=== PATIENT | female | born 1930 | race African-American/Black ===

== ENCOUNTER 2016-11-20 10:55 | Inpatient (IN) | payer OTHER ==
[~2016-11-20] VITALS: Ht 134.6 cm; Wt 59.9 kg
--- NOTE | ~2016-11-20 | 2DMMODE ---
[facility] [address] [place] [address] 2 D/M-MODE ECHOCARDIOGRAM Name: PAT ACUÑA Room #: 303-P [facility] IN ..#: [id number] Admission: 11/20/16 Attend Phys: Renny Mobley, Discharge: Date of : 28 Date of Service: 11/21/16 1411 Report #: [id number] THIS REPORT FOR: //name// APPROVED REPORT Study performed: 11/21/2016 13:12:10 EXAM: Comprehensive 2D, Doppler, and color-flow Echocardiogram Patient Location: Echo lab Room #: 303 Status: routine BSA: 1.55 BP: 109/51 mmHg Other Information Study Quality: Adequate, Technically Difficult Technically limited study due to uncooperative patient. Indications Congestive Heart Failure COPD Dyspnea Syncope Hypertension/HDD 2D Dimensions RVDd: 28.03 mm LVEF(%): 55.02 (>50%) IVSd: 12.46 (7-11mm) LVOT Diam: 18.04 (18-24mm) LVDd: 38.16 mm PWd: 11.09 (7-11mm) Ascending Ao: 29.37 (22-36mm) LVDs: 27.45 (25-40mm) Aortic Root: 27.45 mm IVC: 10.00 mm Nicole's LVEF: 55.02 % Volumes Left Atrial Volume (Systole) Single Plane 4CH: 62.50 mL Single Plane 2CH: 52.11 mL LA ESV Index: 38.00 mL/m2 Aortic Valve AoV Peak Shamar.: 1.52 m/s AO Peak Gr.: 9.25 mmHg LVOT Max P.73 mmHg LVOT Max V: 1.09 m/s [facility] [place] [address] 2 D/M-MODE ECHOCARDIOGRAM Name: PAT ACUÑA Room #: 303-P [facility]#: [id number] Admission: 11/20/16 Attend Phys: Renny Mobley, Discharge: Date of : 28 Date of Service: 11/21/16 1411 Report #: [id number] KAREN Vmax: 1.83 cm2 Mitral Valve E/A Ratio: 0.7 MV Decel. Time: 223.37 ms MV E Max Shamar.: 0.81 m/s MV A Shamar.: 1.12 m/s MV PHT: 64.78 ms IVRT: 93.43 ms Pulmonary Valve PV Peak Shamar.: 1.09 m/s PV Peak Gr.: 4.75 mmHg Pulmonary Vein P Vein S: 0.67 m/s P Vein A: 0.24 m/s P Vein D: 0.38 m/s P Vein A Dur.: 124.6 msec P Vein S/D Ratio: 1.76 Tricuspid Valve RAP Estimate: 5.00 mmHg Left Ventricle The left ventricle is normal size. There is normal left ventricular wall thickness. The left ventricular systolic function is normal. The left ventricular ejection fraction is within the normal range. LVEF is 65%. Mild diastolic dysfunction is present (impaired relaxation pattern). Right Ventricle The right ventricle is normal size. The right ventricular systolic function is normal. Atria Left atrium is dilated. The right atrium size is normal. Aortic Valve The aortic valve is normal in structure. Mild aortic regurgitation. There is no aortic valvular stenosis. Mitral Valve The mitral valve is normal in structure. Mild mitral regurgitation. No evidence of mitral valve stenosis. Tricuspid Valve The tricuspid valve is normal in structure. Trace to mild tricuspid regurgitation. Unable to assess PA pressure. [address] [address] 2 D/M-MODE ECHOCARDIOGRAM Name: ACUÑAPAT Room #: 303-P [facility]#: [id number] Admission: 11/20/16 Attend Phys: Renny Mobley, Discharge: Date of : 28 Date of Service: 11/21/16 1411 Report #: [id number] Pulmonic Valve Pulmonic valve is not well visualized. There is no pulmonic valvular regurgitation. Great Vessels The aortic root is normal in size. Aortic arch is not well visualized. IVC is normal in size and collapses >50% with inspiration. <Conclusion> The left ventricle is normal size. The left ventricular systolic function is normal. The right ventricle is normal size. Left atrium is dilated. Mild aortic regurgitation. Mild mitral regurgitation. Trace to mild tricuspid regurgitation. Unable to assess PA pressure. <ELECTRONICALLY SIGNED> By: Lester Dave MD 11/21/16 141 10 10 Lester Dave MD /INF
--- NOTE | ~2016-11-20 | EKG ---
[address] [address] ELECTROCARDIOGRAM REPORT Name: PAT ACUÑA Room #: 303- ADM IN M.R.#: [id number] Admission: 11/20/16 Attend Phys: Renny Mobley MD Discharge: Date of : 28 Report #: [id number] THIS REPORT FOR: //name// [facility] Test Date: 2016-11-21 Test Time: 08:38:30 Pat Name: PAT ACUÑA Department: Room: 303 Gender: F Supervisor Coin Machine: julianna : 1930 Requested By: Renny Mobley Order Number: [id number] MD: Dale Brown Measurements Intervals [place] Rate: 53 P: 41 WI: 158 QRS: 37 QRSD: 80 T: -51 QT: 424 QTc: 399 Interpretive Statements Sinus rhythm Nonspecific ST and T wave abnormality Compared to ECG 11/20/2016 11:32:17 No significant changes Electronically Signed On 11-21-2016 16:30:58 CDT by Dale Brown [email or web address] <ELECTRONICALLY SIGNED> By: Dale Brown MD, [facility] 11/21/16 1630 0838 0838 Dale rBown MD, [facility] /EPI
--- NOTE | ~2016-11-20 | EKG ---
[address] [address] ELECTROCARDIOGRAM REPORT Name: DOMENICOPAT Room #: 303-P ADM IN M.R.#: [id number] Admission: 11/20/16 Attend Phys: Renny Mobley MD Discharge: Date of : 28 Report #: [id number] THIS REPORT FOR: //name// [facility] ED Test Date: 2016-11-20 Test Time: 11:32:17 Pat Name: PAT ACUÑA Department: Room: [facility] Gender: F Space Engineer: [id number] : 1930 Requested By: Luís Grider Order Number: [id number] MD: Dale Brown Measurements Intervals [place] Rate: 54 P: 26 [place]: 151 QRS: 11 QRSD: 83 T: -34 QT: 416 QTc: 395 Interpretive Statements Sinus rhythm Nonspecific T abnormalities, inferior leads Compared to ECG 02/03/2014 12:33:57 Atrial premature complex(es) no longer present Electronically Signed On 11-21-2016 7:55:39 CDT by Dale Brown [email or web address] <ELECTRONICALLY SIGNED> By: Dale Brown MD, [facility] 11/21/16 0755 1132 1132 Dale Brown MD, [facility] /EPI
--- NOTE | ~2016-11-20 | HC ---
[facility] [place] [address] [place] [address] CONSULTATION Name: PAT ACUÑA Carlota Room #: 303-P ADM IN M.R.#: [id number] Admission: 11/20/16 Attend Phys: Renny Mobley MD Discharge: Date of : 28 Report #: [id number] THIS REPORT FOR: //name// CC: Luis M Mobley REASON FOR CONSULTATION: I was asked to evaluate concerning possible meningitis. HISTORY OF PRESENT ILLNESS: The patient is an 86-year-old with underlying history of coronary artery disease, hypertension who presents with an acute onset of confusion that happened yesterday morning. She lives at home with her grandson and it was noted that she acutely was unable to speak clearly. Did report headache. No fever, chills or sweats. No trauma. Had mild nausea. Blood pressure was elevated when she presented to the Emergency Room. Imaging studies were essentially negative. She on MRI scan did have some small vessel changes, but nothing that looked acute. Mentally has improved over the last 24 hours. Still has mild frontal headache. She has had no travel. REVIEW OF SYSTEMS: Notes no cough, sputum, vomiting, abdominal pain, diarrhea, dysuria or frequency. No rash or arthritis symptoms. No pharyngitis symptoms. No photophobia. Her grandson, she states, has been without infection symptoms. No other exposures. ALLERGIES: None. MEDICATIONS: As noted on her MAR, having had no recent antibiotics. PAST MEDICAL HISTORY: Hypothyroidism, coronary artery disease, CO, congestive heart failure, stenting, COPD, gastroesophageal reflux, UTI, hypertension, hyperlipidemia, anemia. FAMILY HISTORY: Noncontributory. SOCIAL HISTORY: Past smoker. No significant alcohol intake. PHYSICAL EXAMINATION: VITAL SIGNS: Afebrile, hemodynamically stable. Blood pressure is down, in normal range. GENERAL: She was alert and cooperative, conversant, gave a good history. NEUROLOGIC: Intact with no focal changes. EYES: Unremarkable. MOUTH: Unremarkable. NECK: Supple. LUNGS: Clear. HEART: Regular without murmur. ABDOMEN: Soft, nontender, no hepatosplenomegaly or mass. [address] [address] CONSULTATION Name: PAT ACUÑA Room #: 303-P [facility].#: [id number] Admission: 11/20/16 Attend Phys: Renny Mobley MD Discharge: Date of : 28 Report #: [id number] EXTREMITIES: Unremarkable. LABORATORY STUDIES: Imaging as noted above. CSF examination; 4 wbc's, 31 rbc's, protein of 71, glucose 60. Sodium was 141, potassium 4.9, bicarbonate of 27, creatinine 1.2. Liver function tests normal. Hemoglobin 13.2, white count was 6.0, no differential was done, platelet count 174,000. TSH 6.5. Urinalysis unremarkable. IMPRESSION: An 86-year-old with a spell yesterday, which is cleared. There is some concern about hypertensive encephalopathy versus seizure disorder. I am not finding anything that suggests meningitis. Her protein level was mildly elevated. Symptomatically appears much improved today. I would recommend observation off antibiotics at this point in time. She is scheduled to have an EEG and Neurology is following. Continue to control her blood pressure. By: 1618 0220 Geremias Fajardo MD /nt
--- NOTE | ~2016-11-20 | EEG ---
[facility] [place] [address] ELECTROENCEPHALOGRAM Name: PAT ACUÑA Room #: 303-P ADM IN M.R.#: [id number] Admission: 11/20/16 Attend Phys: Renny Mobley MD Discharge: Date of : 28 Report #: [id number] THIS REPORT FOR: //name// CC: Luis M Mobley DATE OF SERVICE: 11/21/2016 This patient is being evaluated for altered mental status. EEG was done by placing the electrodes by standard 10-20 system of electrode placement. Both referential and sequential montages were used for recording. Background activity in this patient's EEG is about 11 Hz and 40 microvolts. This is a symmetrical activity. This patient became drowsy that is associated with bilateral slowing and a few vertex sharp waves. Photic stimulation was unremarkable. Throughout the record, no active epileptiform activity was noticed. IMPRESSION: This patient's EEG is unremarkable. Thank you very much for this referral. By: 0710 0715 Chris Irby MD /nt
[~2016-11-20 10:55] MED LIST: 8 HOUR C500 MG PO; ACETAMINOPHEN325 M1 PO; ADULT LOW DOSE81 MG PO; ALBUTEROL INH IH; CARAFATE 1 GM TA1 G1 OR; CELEXA20 MG PO; CENTRUM SILVER1 EAC4 PO; CLONAZEPAM PO; COLACE100 MG PO; DUONEB 2.5-0.5 M3 ML IH; ENALAPRIL MALEA10 M1 PO; GLYCOLAX POWDER17 GM PO; HYDROCODON-ACE1 EAC7 OR; IRON325 OR; IRON325 PO; LEVOTHYROXIN0.088 MG PO; LIPITOR40 MG PO; NABUMETONE 500500 M1 PO; NABUMETONE 750750 M1 PO; NITROGLYCERIN0.4 MG SUBLING; PLAVIX 75 MG TA75 MG PO; PRILOSEC 20 MG20 MG PO; PRILOSEC20 MG PO; RESTORIL15 MG OR; SIMVASTATIN20 MG PO; TIROSINT75 MCG PO; TOPROL XL25 MG PO; TRIAMTERENE-HC1 EAC2 PO; TYLENOL325 MG PO
[2016-11-20 10:59] VITALS: BP 172/71
[2016-11-20 11:29] LABS: HEMATOCRIT 41.7 % (37.0-47.0); HEMOGLOBIN 14.1 gm/dL (12.0-15.0); MCH 33.4 pg (26.0-34.0); MCHC 33.9 g/dL (28.0-37.0); MCV 98.7 fL (80.0-100.0); RBC 4.22 mil/uL (4.20-5.00); RDW 13.4 % (10.5-14.5); WBC 5.9 thou/uL (4.0-11.0)
[2016-11-20 11:40] LABS: APTT 26.2 Seconds (24.5-32.8); PROTIME 10.7 Seconds (9.3-11.4)
[2016-11-20 11:41] LABS: MAGNESIUM 1.6 mg/dL (1.8-2.4); TROPONIN-I < 0.04 ng/mL (<0.04-0.07)
[2016-11-20 12:10] LABS: URINE BILIRUBIN NEGATIVE (Negative); URINE BLOOD NEGATIVE (Negative); URINE COLOR YELLOW; URINE GLUCOSE-RANDOM* NEGATIVE (Negative); URINE KETONES NEGATIVE (Negative); URINE LEUKOCYTES-REFLEX NEGATIVE (Negative); URINE PROTEIN (DIPSTICK) NEGATIVE (Negative); URINE SPECIFIC GRAVITY 1.015 (1.003-1.035); URINE UROBILINOGEN 0.2 E.U./dl (0.2-1.0)
[2016-11-20] MEDS ORDERED: MOBIC7.5 MG PO (12:19)
[2016-11-20] MEDS ORDERED: NORVASC5 MG PO (12:21)
[2016-11-20 14:06] VITALS: BP 176/99
[2016-11-20 15:26] VITALS: BP 160/48
[2016-11-20 16:00] VITALS: BP 132/64
[2016-11-20 17:29] LABS: CALCIUM 9.8 mg/dL (8.5-10.1); CREATININE 1.3 mg/dL (0.6-1.0); POTASSIUM 4.5 mmol/L (3.5-5.1)
[2016-11-20 17:39] LABS: TOTAL BILIRUBIN 0.5 mg/dL (<0.1-1.0)
[2016-11-20 19:15] VITALS: BP 121/62
[2016-11-21] VITALS (7 sets, daily range): BP systolic 103–166; BP diastolic 45–64
[2016-11-21 07:03] LABS: ALBUMIN 3.7 g/dL (3.4-5.0); CALCIUM 9.6 mg/dL (8.5-10.1); CREATININE 1.2 mg/dL (0.6-1.0); POTASSIUM 4.9 mmol/L (3.5-5.1); TOTAL BILIRUBIN 0.7 mg/dL (<0.1-1.0); TOTAL PROTEIN 7.2 g/dL (6.4-8.2)
[2016-11-21 08:38] LABS: ABG SAMPLE TYPE ARTERIAL; HCO3 27.6 mmol/L (22.0-26.0); LACTATE 2.08 mmol/L (0.5-2.0); O2(CT) 18.8 mL/dL (15.0-23.0); O2Hb 92.6 % (92.0-98.0); PO2 69.6 mmHg (80.0-100.0); STICK SITE R.BRACHIAL; pH 7.387 (7.360-7.450); sO2 93.7 % (92.0-98.0); tCO2 29.1 mmol/L (24.0-30.0)
[2016-11-21 08:53] LABS: HEMATOCRIT 38.7 % (37.0-47.0); HEMOGLOBIN 13.2 gm/dL (12.0-15.0); MCH 33.5 pg (26.0-34.0); MCHC 34.2 g/dL (28.0-37.0); MCV 98.1 fL (80.0-100.0); RBC 3.94 mil/uL (4.20-5.00); RDW 13.5 % (10.5-14.5)
[2016-11-21 10:37] LABS: POC CA IONIZED 5.1 mg/dL (4.5-5.3); POC CREATININE 1.2 mg/dL (0.6-1.3); POC HEMOGLOBIN 14.6 g/dL (12.0-15.0); POC POTASSIUM 4.3 mmol/L (3.5-5.1)
[2016-11-21 13:35] LABS: CSF COLOR COLORLESS; MANUAL DIFF YES; NUMBER OF TUBES 3; VOLUME 5 ml
[2016-11-21 13:36] LABS: CSF CLARITY CLEAR; CSF WBC 4 /mm3 (0-10)
[2016-11-21 13:42] LABS: CSF GLUCOSE 60 mg/dL (40-70); CSF PROTEIN 71 mg/dL (15-45)
[2016-11-22 03:25] VITALS: BP 116/66
[2016-11-22 07:59] VITALS: BP 115/59
[2016-11-22 16:39] VITALS: BP 110/45
[2016-11-22 19:30] VITALS: BP 171/84
[2016-11-23 03:35] VITALS: BP 110/73
[2016-11-23 08:11] VITALS: BP 107/52
[2016-11-23] MEDS ORDERED: KEPPRA 500 MG500 MG PO (13:31)
== END 2016-11-23 16:07 | DRG 100 ==
LOC: ER 10:55 → EROBS 13:52 → 3N 13:52
PROVIDERS: Emergency Medicine; Internal Medicine
PROC: 009U3ZX Drainage of Spinal Canal, Percutaneous Approach, Diagnostic (ICD-10-PCS; principal; 2016-11-21)
PROC: B01B1ZZ Fluoroscopy of Spinal Cord using Low Osmolar Contrast (ICD-10-PCS; principal; 2016-11-21)
PROC: 02HV33Z Insertion of Infusion Device into Superior Vena Cava, Percutaneous Approach (ICD-10-PCS; 2016-11-21)
DX: R56.9 Unspecified convulsions (principal); G93.40 Encephalopathy, unspecified; E03.9 Hypothyroidism, unspecified; E78.5 Hyperlipidemia, unspecified; K21.9 Gastro-esophageal reflux disease without esophagitis; I11.0 Hypertensive heart disease with heart failure; I50.9 Heart failure, unspecified; J44.9 Chronic obstructive pulmonary disease, unspecified; I25.10 Atherosclerotic heart disease of native coronary artery without angina pectoris; M19.90 Unspecified osteoarthritis, unspecified site; K59.00 Constipation, unspecified; I25.2 Old myocardial infarction; Z87.891 Personal history of nicotine dependence; Z87.440 Personal history of urinary (tract) infections; Z79.899 Other long term (current) drug therapy; Z95.5 Presence of coronary angioplasty implant and graft
CPT/HCPCS: 10096